=== PATIENT | male | born 1985 | race Hispanic/Latino ===

== ENCOUNTER 2022-03-28 23:47 | Emergency (ER) | payer SELFPAY ==
[2022-03-29] MEDS ORDERED: IBUPROFEN 400 MG TAB ONE (04:15)
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
[2022-03-29 05:27] VITALS: BP 150/105; TEMP 98.4; O2SAT 98
--- NOTE | 2022-03-29 14:37 | RAD REPORT ---
EXAM DESCRIPTION: RAD - Forearm Right - 03/29/2022 4:09 am CLINICAL HISTORY: PAIN COMPARISON: None. TECHNIQUE: XR FOREARM 03/29/2022 2:32 AM CDT FINDINGS: There is no fracture. Joint spaces are preserved. Soft tissues are unremarkable. IMPRESSION: No acute osseous findings. Electronically signed by: Aníbal Carpenter MD 03/29/2022 4:55 AM CDT Due to temporary technical issues with the PACS/Fluency reporting system, reports are being signed by the in house radiologist without review as a courtesy to ensure prompt reporting. The interpreting r adiologist is fully responsible for the content of the report.
== END 2022-03-29 05:21 | disposition home or self-care (01) ==
LOC: ER 23:47
DX: S50.11XA Contusion of right forearm, initial encounter (principal); Y04.2XXA Assault by strike against or bumped into by another person, initial encounter; Y93.9 Activity, unspecified; Y92.9 Unspecified place or not applicable
CPT/HCPCS: 99283